=== PATIENT | female | born 1995 | race Caucasian/White ===

== ENCOUNTER 2018-10-08 16:20 | Emergency (ER) | payer SELFPAY ==
[~2018-10-08] VITALS: Ht 161.3 cm; Wt 108.9 kg
[2018-10-08 17:13] LABS: CLARITY,URINE CLEAR; COLOR,URINE YELLOW
[2018-10-08 17:14] LABS: BACTERIA,URINE NEGATIVE /HPF; BILIRUBIN,URINE NEGATIVE (NEGATIVE); GLUCOSE, URINE (UA) NEGATIVE (NEGATIVE); KETONES,URINE NEGATIVE (NEGATIVE); LEUKOCYTE ESTERASE ,URINE NEGATIVE (NEGATIVE); NITRITE,URINE NEGATIVE (NEGATIVE); PH,URINE 6.5 (5-9); PROTEIN,URINE NEGATIVE (NEGATIVE); UROBILINOGEN,URINE 0.2 MG/DL (NORMAL)
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
[2018-10-08 17:40] VITALS: BP 146/79
== END 2018-10-08 17:40 | disposition home or self-care (01) ==
LOC: ER FS 16:25
DX: T67.5XXA Heat exhaustion, unspecified, initial encounter (principal); F17.210 Nicotine dependence, cigarettes, uncomplicated
CPT/HCPCS: 81000; 84703; 99283

== ENCOUNTER 2021-01-23 13:22 | Emergency (ER) | payer SELFPAY ==
[~2021-01-23] VITALS: Ht 160 cm; Wt 112.4 kg
[2021-01-23] MEDS ORDERED: PANTOPRAZOLE 40 MG (PROTONIX) VIAL IV STA (13:47)
[2021-01-23] MEDS ORDERED: NS IV 1000 ML 1,000 ML IV STA (13:47)
[2021-01-23] MEDS ORDERED: ONDANSETRON 4 MG/2 ML (SDV) Z0FRAN IVP STA (13:47)
[2021-01-23 13:50] LABS: BACTERIA,URINE TRACE /HPF; BILIRUBIN,URINE NEGATIVE (NEGATIVE); CLARITY,URINE CLEAR; COLOR,URINE YELLOW; GLUCOSE, URINE (UA) NEGATIVE (NEGATIVE); KETONES,URINE NEGATIVE (NEGATIVE); LEUKOCYTE ESTERASE ,URINE TRACE (NEGATIVE); NITRITE,URINE NEGATIVE (NEGATIVE); PH,URINE 8.5 (5-9); PROTEIN,URINE TRACE (NEGATIVE); WBC,URINE 0-2 /HPF
--- NOTE | 2021-01-23 13:53 | ED GI ---
General Chief Complaint: Abdominal/GI Problems Stated Complaint: VOMITTING, CHILLS,SHAKING Source of Information: Patient History of Present Illness Date Seen by Provider: Jan 23, 2021 Time Seen by Provider: 13:30 Initial Comments 26-year-old female presenting with complaints of nausea and vomiting for the last several hours. She had been drinking heavily overnight and stopped around 1 AM. She states that she has not been able to keep anything down since then. She feels like she has chills and shaking. She has been vomiting to the point that her throat is sore now. She is describing acid coming up in her throat. She states even just trying to do water in her mouth to swish makes her nauseated and prompts her vomiting. She denies having reacted to drinking like this in the past. She does relate that she drank multiple drinks last night and was drinking very heavily. She is unsure of her last menstrual cycle. She states that they are irregular for her. She denies any pain or burning with urination, diarrhea, chest pain, cough, headache, body aches. She has some mild epigastric burning pain. Timing/Duration: 12 Hours Severity/Quality: Severe, Burning (epigastric and back of th roat) Activities at Onset: Other (drinking heavily) Associated Symptoms: No Back Pain, No Chest Pain, No Diaphoresis; Fever/Chills (chills without fever), Fatigue; No Headache; Heartburn, Nausea/Vomiting; No Rash, No Shortness of Air, No Swelling/Mass in Abdomen, No Syncope, No Weakness Allergies and Home Medications Allergies Coded Allergies: No Known Drug Allergies (Unverified , 01/23/21) Patient Home Medication List Home Medication List Reviewed: Yes Ondansetron (Ondansetron Odt) 4 Mg Tab.rapdis, 4 MG PO Q6H PRN for NAUSEA/VOMITING Prescribed by: WARNER BURR on 01/23/21 1526 Review of Systems Review of Systems Constitutional: see HPI; No dizziness EENTM: No Symptoms Reported Respiratory: No Symptoms Reported Cardiovascular: No Symptoms Reported Gastrointestinal: See HPI; Denies Diarrhea Genitourinary: Denies Burning, Denies Discharge, Denies Drainage, Denies Frequency, Denies Flank Pain Musculoskeletal: no symptoms reported Skin: No rash Psychiatric/Neurological: Denies Headache Past Daaqabc-Zowgfn-Yqgodp Hx Patient Social History Tobacco Use?: Yes Tobacco type used: Cigarettes Smoking Status: Current Everyday Smoker Use of E-Cig and/or Vaping dev: No Substance use?: No Alcohol Use?: No Pt feels they are or have been: No Immunizations Up To Date First/Initial COVID19 Vaccinat: Not currently vaccinated Seasonal Allergies Seasonal Allergies: No Past Medical History Surgeries: No Respiratory: No Cardiac: No Neurological: No Genitourinary: No Gastrointestinal: No Musculoskeletal: No Endocrine: No HEENT: No Cancer: No Psychosocial: No Integumentary: No Blood Disorders: No Physical Exam Vital Signs Vital Signs - First Documented 01/23/21 13:27 Temp 36.4 Pulse 76 Resp 16 B/P (MAP) 145/85 (105) Pulse Ox 98 O2 Delivery Room Air Capillary Refill : Height/Weight/BMI Height: 5'3.50" Weight: 240lbs. oz. 108.063827lh; BMI Method:Stated General Appearance: WD/WN, no apparent distress HEENT: PERRL/EOMI, pharyngeal erythema; No tonsillar exudate Neck: non-tender, full range of motion, supple, normal inspection Respiratory: chest non-tender, lungs clear, normal breath sounds, no respiratory distress, no accessory muscle use Cardiovascular: normal peripheral pulses, regular rate, rhythm Gastrointestinal: normal bowel sounds, soft, no pulsatile mass; No guarding, No rebound; tenderness (mild epigastric) Rectal: deferred Extremities: normal range of motion, non-tender, normal capillary refill Back: no CVA tenderness Pelvic: other Neurologic/Psychiatric: cut filer II-XII nml as tested, no motor/sensory deficits, alert, oriented x 3 Skin: normal color, warm/dry Images 1 - diffuse aching and soreness in abdomen but burning pain worse with palpation in epigastric area Progress/Results/Core Measures Results/Orders Lab Results Laboratory Tests Test 01/23/21 13:27 01/23/21 13:50 Range/Units Urine Color YELLOW Urine Clarity CLEAR Urine pH 8.5 5-9 Urine Specific [place] 1.010 L 1.016-1.022 Urine Protein TRACE H NEGATIVE Urine Glucose (UA) NEGATIVE NEGATIVE Urine Ketones NEGATIVE NEGATIVE Urine Nitrite NEGATIVE NEGATIVE Urine Bilirubin NEGATIVE NEGATIVE Urine Urobilinogen 0.2 < = 1.0 MG/DL Urine Leukocyte Esterase TRACE H NEGATIVE Urine RBC (Auto) NEGATIVE NEGATIVE Urine RBC 2-5 H /HPF Urine WBC 0-2 /HPF Urine Squamous Epithelial Cells 2-5 /HPF Urine Crystals NONE /LPF Urine Bacteria TRACE /HPF Urine Casts NONE /LPF Urine Mucus SMALL H /LPF Urine Culture Indicated YES White Blood Count 10.9 4.3-11.0 10^3/uL Red Blood Count 5.24 H 3.80-5.11 10^6/uL Hemoglobin 14.5 11.5-16.0 g/dL Hematocrit 44 35-52 % Mean Corpuscular Volume 84 80-99 fL Mean Corpuscular Hemoglobin 28 25-34 pg Mean Corpuscular Hemoglobin Concent 33 32-36 g/dL Red Cell Distribution Width 14.5 10.0-14.5 % Platelet Count 399 130-400 10^3/uL Mean Platelet Volume 11.5 9.0-12.2 fL Immature Granulocyte % (Auto) 0 % Neutrophils (%) (Auto) 80 H 42-75 % Lymphocytes (%) (Auto) 14 12-44 % Monocytes (%) (Auto) 4 0-12 % Eosinophils (%) (Auto) 1 0-10 % Basophils (%) (Auto) 1 0-10 % Neutrophils # (Auto) 8.7 H 1.8-7.8 X 10^3 Lymphocytes # (Auto) 1.5 1.0-4.0 X 10^3 Monocytes # (Auto) 0.5 0.0-1.0 X 10^3 Eosinophils # (Auto) 0.2 0.0-0.3 10^3/uL Basophils # (Auto) 0.1 0.0-0.1 10^3/uL Immature Granulocyte # (Auto) 0.0 0.0-0.1 10^3/uL Sodium Level 143 135-145 MMOL/L Potassium Level 4.6 3.6-5.0 MMOL/L Chloride Level 107 98-107 MMOL/L Carbon Dioxide Level 25 21-32 MMOL/L Anion Gap 11 5-14 MMOL/L Blood Urea Nitrogen 11 7-18 MG/DL Creatinine 0.71 0.60-1.30 MG/DL Estimat Glomerular Filtration Rate 99 BUN/Creatinine Ratio 15 Glucose Level 102 70-105 MG/DL Calcium Level 9.2 8.5-10.1 MG/DL Corrected Calcium 9.0 8.5-10.1 MG/DL Total Bilirubin 0.2 0.1-1.0 MG/DL Aspartate Amino Transf (AST/SGOT) 26 5-34 U/L Alanine Aminotransferase (ALT/SGPT) 26 0-55 U/L Alkaline Phosphatase 143 H 40-136 U/L Total Protein 7.8 6.4-8.2 GM/DL Albumin 4.3 3.2-4.5 GM/DL Lipase 67 8-78 U/L My Orders Orders - WARNER BURR MD Comprehensive Metabolic Panel (01/23/21 13:46) Lipase (01/23/21 13:46) Ua Culture If Indicated (01/23/21 13:46) Ed Iv/Invasive Line Start (01/23/21 13:46) Cbc With Automated Diff (01/23/21 13:46) Urine Bedside (01/23/21 13:46) Ns Iv 1000 Ml (Sodium Chloride 0.9%) (01/23/21 13:47) Ondansetron Injection (Zofran Injectio (01/23/21 13:47) Pantoprazole Injection (Protonix Injecti (01/23/21 13:47) Urine Culture (01/23/21 13:27) Vital Signs/I&O 01/23/21 01/23/21 13:27 15:36 Temp 36.4 36.4 Pulse 76 82 Resp 16 16 B/P (MAP) 145/85 (105) 130/78 Pulse Ox 98 98 O2 Delivery Room Air Room Air Progress Progress Note #1: Progress Note As patient reports that she does not feel like she could tolerate even oral dissolving Zofran without vomiting will obtain IV and check basic labs. Give a liter of normal saline for hydration, Zofran 4 mg IV for nausea, Protonix 40 mg IV for reflux and acid. Check urinalysis and bedside test as well Progress Note #2: Progress Note Reviewed labs with pt and results did not show acute significant abnormality with the blood count, chemistry or urine. Pt reports she is feeling better after fluids and treatment in the ED. Will prescribe Zofran ODT for home prn x 2 days. Advised she may also want to take some acid reducing medicine such as prilosec to help with healing the lining of her stomach from the gastritis caused by alcohol Departure Impression Primary Impression: Nausea and vomiting Qualified Codes: R11.14 - Bilious vomiting Additional Impression: Acute alcoholic gastritis without hemorrhage Disposition: HOME, SELF-CARE Condition: Stable Departure-Patient Inst. Decision time for Depature: 15:23 Referrals: NO,LOCAL PHYSICIAN (PCP) Primary Care Physician [facility] [place] Instructions: Alcohol Intoxication ED, Gastritis ED, Nausea and Vomiting, Adult ED Add. Discharge Instructions: Use the dissolving nausea tablets to help settle your stomach so he can keep drinking fluids and stay hydrated. Consider using electrolyte drinks such as Pedialyte, Gatorade, Powerade to help with hydration. When you do advanced to eating solid foods in 12 to 24 hours you should start with bland foods such as applesauce, toast, rice. This will be easier on your stomach and less likely to aggravate the irritation from the alcohol to the lining of your stomach. Consider using a acid manager studio for the next week or 2 to help with the healing of the lining of your stomach from the alcohol you drank last night If you call [phone] you could see about establishing care with a local provider at the [facility] clinic. All discharge instructions reviewed with patient and/or family. Voiced understanding. Scripts Ondansetron (Ondansetron Odt) 4 Mg Tab.rapdis 4 MG PO Q6H PRN for NAUSEA/VOMITING for 2 Days, #8 TAB 0 Refills Prov: WARNER BURR MD 01/23/21 WARNER BURR MD Jan 23, 2021 13:53
[2021-01-23 13:58] LABS: BASOPHILS # (AUTO) 0.1 10^3/uL (0.0-0.1); BASOPHILS % (AUTO) 1 % (0-10); EOSINOPHILS # (AUTO) 0.2 10^3/uL (0.0-0.3); EOSINOPHILS % (AUTO) 1 % (0-10); HEMATOCRIT 44 % (35-52); HEMOGLOBIN 14.5 g/dL (11.5-16.0); LYMPHOCYTES # (AUTO) 1.5 X 10^3 (1.0-4.0); LYMPHOCYTES % (AUTO) 14 % (12-44); MEAN CORPUSCULAR HEMOGLOBIN 28 pg (25-34); MEAN CORPUSCULAR HGB CONC 33 g/dL (32-36); MEAN CORPUSCULAR VOLUME 84 fL (80-99); MEAN PLATELET VOLUME 11.5 fL (9.0-12.2); MONOCYTES # (AUTO) 0.5 X 10^3 (0.0-1.0); MONOCYTES % (AUTO) 4 % (0-12); NEUTROPHILS # (AUTO) 8.7 X 10^3 (1.8-7.8); NEUTROPHILS % (AUTO) 80 % (42-75); PLATELET COUNT 399 10^3/uL (130-400); WHITE BLOOD COUNT 10.9 10^3/uL (4.3-11.0)
[2021-01-23 14:24] LABS: ALBUMIN 4.3 GM/DL (3.2-4.5); BILIRUBIN,TOTAL 0.2 MG/DL (0.1-1.0); CALCIUM 9.2 MG/DL (8.5-10.1); CREATININE SERUM 0.71 MG/DL (0.60-1.30); POTASSIUM 4.6 MMOL/L (3.6-5.0); TOTAL PROTEIN 7.8 GM/DL (6.4-8.2)
[2021-01-23] MEDS ORDERED: ONDA4TAB11 PO (15:26)
[2021-01-23 15:36] VITALS: BP 130/78
== END 2021-01-23 15:32 | disposition home or self-care (01) ==
LOC: EDUNIT# 13:22 → ER FS 13:24
DX: K29.20 Alcoholic gastritis without bleeding (principal); F17.210 Nicotine dependence, cigarettes, uncomplicated
CPT/HCPCS: 36415; 80053; 81000; 83690; 84703; 85025; 87088

== ENCOUNTER 2022-02-28 22:04 | Emergency (ER) | payer BC, OTHER ==
[~2022-02-28] VITALS: Ht 160 cm; Wt 113.5 kg
[~2022-02-28 22:04] MED LIST: ONDA4TAB11 PO
[2022-02-28 22:06] VITALS: BP 150/83
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
== END 2022-02-28 22:17 | disposition home or self-care (01) ==
LOC: EDUNIT# 22:04 → ER FS 22:05
DX: T23.132A Burn of first degree of multiple left fingers (nail), not including thumb, initial encounter (principal); T31.0 Burns involving less than 10% of body surface; Z28.310 Unvaccinated for COVID-19; X13.1XXA Other contact with steam and other hot vapors, initial encounter; Y93.G3 Activity, cooking and baking
CPT/HCPCS: 99281

== ENCOUNTER 2022-07-12 02:55 | Emergency (ER) | payer BC ==
[~2022-07-12] VITALS: Ht 160 cm; Wt 120.7 kg
--- NOTE | 2022-07-12 03:14 | ED Abdominal Pain ---
General Stated Complaint: SHARP ADB PAIN| LEFT SIDE History of Present Illness Date Seen by Provider: July 12, 2022 Time Seen by Provider: 03:08 Initial Comments 27-year-old female with PMH of an ectopic in 2016, is here with complaints of mild pain in the left lower quadrant which is radiating to the right side which began last night. Patient states that the pain is intense and comes and goes. Denies fever and chills, nausea or vomiting, diarrhea, constipation, dysuria or hematuria, chest pain. Allergies and Home Medications Allergies Coded Allergies: No Known Drug Allergies (Unverified , 01/23/21) Patient Home Medication List Home Medication List Reviewed: Yes Ondansetron (Ondansetron Odt) 4 Mg Tab.rapdis, 4 MG PO Q6H PRN for NAUSEA/VOMITING Prescribed by: WARNER BURR on 01/23/21 1526 Review of Systems Review of Systems Constitutional: no symptoms reported EENTM: No Symptoms Reported Respiratory: No Symptoms Reported Cardiovascular: No Symptoms Reported Gastrointestinal: Abdominal Pain Genitourinary: No Symptoms Reported Musculoskeletal: no symptoms reported Skin: no symptoms reported Psychiatric/Neurological: No Symptoms Reported Endocrine: No Symptoms Reported Hematologic/Lymphatic: No Symptoms Reported Past Npmkurc-Ngczaq-Etcfla Hx Immunizations Up To Date First/Initial COVID19 Vaccinat: Not currently vaccinated Seasonal Allergies Seasonal Allergies: No Past Medical History Surgeries: No Respiratory: No Cardiac: No Neurological: No Genitourinary: No Gastrointestinal: No Musculoskeletal: No Endocrine: No HEENT: No Cancer: No Psychosocial: No Integumentary: No Blood Disorders: No Family Medical History No Pertinent Family Hx Physical Exam Vital Signs Vital Signs - First Documented 07/12/22 03:00 Temp 36.6 Pulse 93 Resp 20 B/P (MAP) 144/89 (107) Pulse Ox 10 O2 Delivery Room Air Capillary Refill : Height/Weight/BMI Height: 5'3.50" Weight: 240lbs. oz. [id number]; 44.00 BMI Method:Stated General Appearance: WD/WN, no apparent distress, obese HEENT: PERRL/EOMI Neck: full range of motion Respiratory: lungs clear, normal breath sounds Cardiovascular: regular rate, rhythm, no edema Gastrointestinal: normal bowel sounds, soft, no organomegaly, tenderness (Palpation demonstrates tenderness in the LLQ, RLQ, RUQ, epigastric regions.) Extremities: normal range of motion Back: no CVA tenderness Pelvic: normal external exam Neurologic/Psychiatric: alert, normal mood/affect, oriented x 3 Skin: normal color Focused Exam Lactate Level 07/12/22 04:30: Lactic Acid Level 0.75 Lactic Acid Level Laboratory Tests Test 07/12/22 04:30 Lactic Acid Level 0.75 MMOL/L (0.50-2.00) Progress/Results/Core Measures Results/Orders Lab Results Laboratory Tests Test 07/12/22 03:06 07/12/22 03:10 07/12/22 04:30 Range/Units Urine Color YELLOW Urine Clarity SL CLOUDY Urine pH 6.0 5-9 Urine Specific [place] <=1.005 1.016-1.022 Urine Protein NEGATIVE NEGATIVE Urine Glucose (UA) NEGATIVE NEGATIVE Urine Ketones NEGATIVE NEGATIVE Urine Nitrite NEGATIVE NEGATIVE Urine Bilirubin NEGATIVE NEGATIVE Urine Urobilinogen 0.2 < = 1.0 MG/DL Urine Leukocyte Esterase 1+ H NEGATIVE Urine RBC (Auto) NEGATIVE NEGATIVE Urine RBC RARE /HPF Urine WBC 0-2 /HPF Urine Squamous Epithelial Cells 2-5 /HPF Urine Crystals NONE /LPF Urine Bacteria FEW H /HPF Urine Casts NONE /LPF Urine Mucus SMALL H /LPF Urine Other CLUE CELLS PRESENT /HPF Urine Culture Indicated NO Urine Opiates Screen NEGATIVE NEGATIVE Urine Oxycodone Screen NEGATIVE NEGATIVE Urine Methadone Screen NEGATIVE NEGATIVE Urine Propoxyphene Screen NEGATIVE NEGATIVE Urine Barbiturates Screen NEGATIVE NEGATIVE Ur Tricyclic Antidepressants Screen NEGATIVE NEGATIVE Urine Phencyclidine Screen NEGATIVE NEGATIVE Urine Amphetamines Screen NEGATIVE NEGATIVE Urine Methamphetamines Screen NEGATIVE NEGATIVE Urine Benzodiazepines Screen NEGATIVE NEGATIVE Urine Cocaine Screen NEGATIVE NEGATIVE Urine Cannabinoids Screen NEGATIVE NEGATIVE White Blood Count 12.7 H 4.3-11.0 10^3/uL Red Blood Count 5.10 3.80-5.11 10^6/uL Hemoglobin 14.2 11.5-16.0 g/dL Hematocrit 44 35-52 % Mean Corpuscular Volume 85 80-99 fL Mean Corpuscular Hemoglobin 28 25-34 pg Mean Corpuscular Hemoglobin Concent 33 32-36 g/dL Red Cell Distribution Width 13.7 10.0-14.5 % Platelet Count 349 130-400 10^3/uL Mean Platelet Volume 11.5 9.0-12.2 fL Immature Granulocyte % (Auto) 0 % Neutrophils (%) (Auto) 63 42-75 % Lymphocytes (%) (Auto) 27 12-44 % Monocytes (%) (Auto) 5 0-12 % Eosinophils (%) (Auto) 4 0-10 % Basophils (%) (Auto) 1 0-10 % Neutrophils # (Auto) 8.0 H 1.8-7.8 10^3/uL Lymphocytes # (Auto) 3.4 1.0-4.0 10^3/uL Monocytes # (Auto) 0.7 0.0-1.0 10^3/uL Eosinophils # (Auto) 0.5 H 0.0-0.3 10^3/uL Basophils # (Auto) 0.1 0.0-0.1 10^3/uL Immature Granulocyte # (Auto) 0.1 0.0-0.1 10^3/uL Sodium Level 139 135-145 MMOL/L Potassium Level 4.0 3.6-5.0 MMOL/L Chloride Level 104 98-107 MMOL/L Carbon Dioxide Level 23 21-32 MMOL/L Anion Gap 12 5-14 MMOL/L Blood Urea Nitrogen 17 7-18 MG/DL Creatinine 0.84 0.60-1.30 MG/DL Estimat Glomerular Filtration Rate 97 BUN/Creatinine Ratio 20 Glucose Level 98 70-105 MG/DL Calcium Level 9.3 8.5-10.1 MG/DL Corrected Calcium 9.3 8.5-10.1 MG/DL Total Bilirubin 0.2 0.1-1.0 MG/DL Aspartate Amino Transf (AST/SGOT) 17 5-34 U/L Alanine Aminotransferase (ALT/SGPT) 15 0-55 U/L Alkaline Phosphatase 150 H 40-136 U/L Total Protein 7.3 6.4-8.2 GM/DL Albumin 4.0 3.2-4.5 GM/DL Lipase 51 8-78 U/L Serum Alcohol < 10 <10 MG/DL Lactic Acid Level 0.75 0.50-2.00 MMOL/L My Orders Orders - JOSE ÁLVAREZ MD Alcohol (07/12/22 03:14) Cbc With Automated Diff (07/12/22 03:14) Comprehensive Metabolic Panel (07/12/22 03:14) Drug Screen Stat (Urine) (07/12/22 03:14) Lactic Acid Analyzer (07/12/22 03:14) Lipase (07/12/22 03:14) Ua Culture If Indicated (07/12/22 03:14) Ct Abdomen/Pelvis W (07/12/22 03:22) Ketorolac Injection (Toradol Injection) (07/12/22 03:30) Ed Iv/Invasive Line Start (07/12/22 03:23) Ns Iv 1000 Ml (Sodium Chloride 0.9%) (07/12/22 03:23) Iohexol Injection (Omnipaque 350 Mg/Ml 1 (07/12/22 04:15) Received Contrast (Hold Metformin- Contr (07/12/22 04:15) Sodium Chloride Flush (Catheter Flush Sy (07/12/22 04:15) Ns (Ivpb) (Sodium Chloride 0.9% Ivpb Bag (07/12/22 04:15) Medications Given in ED Current Medications Medications Dose Ordered Sig/Bere Route Start Time Stop Time Status Last Admin Dose Admin Iohexol 100 ml ONCE ONCE IV 07/12/22 04:15 07/12/22 04:16 DC 07/12/22 04:34 80 ML Ketorolac Tromethamine 15 mg ONCE ONCE IVP 07/12/22 03:30 07/12/22 03:31 DC 07/12/22 03:34 15 MG Sodium Chloride 10 ml NEEDED PRN IV 07/12/22 04:15 07/12/22 04:34 10 ML Sodium Chloride 100 ml ONCE ONCE IV 07/12/22 04:15 07/12/22 04:16 DC 07/12/22 04:34 100 ML Vital Signs/I&O 07/12/22 07/12/22 03:00 03:34 Temp 36.6 36.6 Pulse 93 Resp 20 B/P (MAP) 144/89 (107) Pulse Ox 10 O2 Delivery Room Air Progress Progress Note : Progress Note 1. ABDOMINAL PAIN/ UTI: - CT ABD & PELVIS: normal - CBC/ CMP: no acute findings - Lipase negative - UDS: negative - UA is positive for LE and bacteria - NS IVF - Toradol 15mg iv STAT - Prescription given for Nitrofurantoin 100mg bid for 7 days -Adequate hydration advised -Follow-up with PCP as needed -The patient was seen in the ED, and treated appropriately to presentation at a specific point in time. Patient is informed that there is a possibility that disease and illness can evolve and change in acuity rapidly or slowly after patient is discharged from the ER. Precautionary advice given to the patient for immediate return to ER if symptoms worsen or do not resolve, and to seek emergency care sooner rather than later. Pt also advised on the importance of PCP follow up and compliance with management and follow up plan with PCP and/or specialist, as this is part of the management plan. Pt verbally expressed understanding. Diagnostic Imaging Diagonstic Imaging: CT Plain Films/CT/US/NM/MRI: abdomen, pelvis Comments [facility]. [place], [place] NAME: ANEESH CHRISTINE [facility] REC#: [id number] PT STATUS: REG ER : 1995 PHYSICIAN: JOSE ÁLVAREZ MD ADMIT DATE: 07/12/22/ER FS Draft Date of Exam:07/12/22 CT ABDOMEN/PELVIS W EXAMINATION: CT abdomen and pelvis with intravenous contrast. TECHNIQUE: Multiple contiguous axial images were obtained through the abdomen and pelvis after the uneventful administration of intravenous contrast. All CT scans use one or more of the following dose optimizing techniques: automated exposure control, MA and/or KvP adjustment based on patient size and exam type or iterative reconstruction. HISTORY: generalized abdominal pain COMPARISON: None available. FINDINGS: Lung bases: Bibasilar dependent atelectasis. Solid organs: The liver is normal without focal lesion. The gallbladder is normal. There is no biliary ductal dilation. Pancreas is normal. Spleen is normal. Adrenal glands are normal. The kidneys are normal without hydronephrosis. Bowel: The stomach and small bowel are normal without obstruction. The colon is normal. The appendix is normal. Peritoneum: There is no intraperitoneal free fluid or free air. No suspicious lymphadenopathy. Vasculature: Normal without aneurysm. Musculoskeletal: No suspicious osseous lesion or compression fracture. Pelvis: The uterus and adnexa are normal. The urinary bladder is normal. IMPRESSION: 1. No acute abnormality in the abdomen or pelvis. Dictated on workstation # [id number] Dict: 07/12/22622 Trans: 07/12/22 [id number] Interpreted by: BLANCA PYLE DO Electronically signed by: Departure Impression Primary Impression: UTI (urinary tract infection) Disposition: HOME, SELF-CARE Condition: Stable Departure-Patient Inst. Referrals: NO,LOCAL PHYSICIAN (PCP/Family) Primary Care Physician Patient Instructions: Urinary Tract Infections in Adults, Urinary Tract Infection, Adult ED Add. Discharge Instructions: - Prescription given for Nitrofurantoin 100mg bid for 7 days -Adequate hydration advised -Follow-up with PCP as needed Scripts Nitrofurantoin Macrocrystal (Nitrofurantoin) 100 Mg Capsule 100 MG PO BID for 7 Days, #14 CAP Prov: JOSE ÁLVAREZ MD 07/12/22 Work/School Note: Work Release Form Date Seen in the Emergency Department: July 12, 2022 Return to Work: July 13, 2022 Restrictions: No Restrictions JOSE ÁLVAREZ MD July 12, 2022 03:14
[2022-07-12] MEDS ORDERED: NS IV 1000 ML 1,000 ML IV STA (03:23)
[2022-07-12 03:25] LABS: BASOPHILS # (AUTO) 0.1 10^3/uL (0.0-0.1); BASOPHILS % (AUTO) 1 % (0-10); EOSINOPHILS # (AUTO) 0.5 10^3/uL (0.0-0.3); EOSINOPHILS % (AUTO) 4 % (0-10); HEMATOCRIT 44 % (35-52); HEMOGLOBIN 14.2 g/dL (11.5-16.0); LYMPHOCYTES # (AUTO) 3.4 10^3/uL (1.0-4.0); LYMPHOCYTES % (AUTO) 27 % (12-44); MEAN CORPUSCULAR HEMOGLOBIN 28 pg (25-34); MEAN CORPUSCULAR HGB CONC 33 g/dL (32-36); MEAN CORPUSCULAR VOLUME 85 fL (80-99); MEAN PLATELET VOLUME 11.5 fL (9.0-12.2); MONOCYTES # (AUTO) 0.7 10^3/uL (0.0-1.0); MONOCYTES % (AUTO) 5 % (0-12); NEUTROPHILS % (AUTO) 63 % (42-75); PLATELET COUNT 349 10^3/uL (130-400); WHITE BLOOD COUNT 12.7 10^3/uL (4.3-11.0)
[2022-07-12] MEDS ORDERED: KETOROLAC 15 MG/ML VIAL IVP ONE (03:30)
[2022-07-12 03:31] LABS: BILIRUBIN,URINE NEGATIVE (NEGATIVE); CLARITY,URINE SL CLOUDY; COLOR,URINE YELLOW; GLUCOSE, URINE (UA) NEGATIVE (NEGATIVE); KETONES,URINE NEGATIVE (NEGATIVE); LEUKOCYTE ESTERASE ,URINE 1+ (NEGATIVE); NITRITE,URINE NEGATIVE (NEGATIVE); PROTEIN,URINE NEGATIVE (NEGATIVE)
[2022-07-12 03:43] LABS: BACTERIA,URINE FEW /HPF; RBC,URINE RARE /HPF; WBC,URINE 0-2 /HPF
[2022-07-12 03:44] LABS: URINE OTHER CLUE CELLS PRESENT /HPF
[2022-07-12 03:45] LABS: AMPHETAMINE SCREEN, URINE NEGATIVE (NEGATIVE); BARBITURATE SCREEN URINE NEGATIVE (NEGATIVE); BENZODIAZEPINES SCREEN URINE NEGATIVE (NEGATIVE); CANNABINOID SCREEN, URINE NEGATIVE (NEGATIVE); COCAINE SCREEN URINE NEGATIVE (NEGATIVE); METHADONE STAT NEGATIVE (NEGATIVE); OPIATE SCREEN URINE NEGATIVE (NEGATIVE); OXYCODONE STAT NEGATIVE (NEGATIVE); PROPOXYPHENE STAT NEGATIVE (NEGATIVE); TRICYCLIC ANTIDEPRESSANTS SCRE NEGATIVE (NEGATIVE)
[2022-07-12 03:51] LABS: BUN/CREATININE RATIO 20; CALCIUM 9.3 MG/DL (8.5-10.1); CARBON DIOXIDE 23 MMOL/L (21-32); CHLORIDE 104 MMOL/L (98-107); CREATININE SERUM 0.84 MG/DL (0.60-1.30); GFR ESTIMATED 97; GLUCOSE 98 MG/DL (70-105); SODIUM 139 MMOL/L (135-145)
[2022-07-12 03:52] LABS: ALANINE AMINOTRANSFERASE 15 U/L (0-55); ALKALINE PHOSPHATASE 150 U/L (40-136); BILIRUBIN,TOTAL 0.2 MG/DL (0.1-1.0); LIPASE 51 U/L (8-78); TOTAL PROTEIN 7.3 GM/DL (6.4-8.2)
[2022-07-12] MEDS ORDERED: HOLD METFORMIN - RECEIVED CONTRAST 20 ML VIAL IV SCH (04:15)
[2022-07-12] MEDS ORDERED: CATHETER FLUSH 10 ML SYR IV PRN (04:15)
[2022-07-12] MEDS ORDERED: NS 100 ML (IVPB) BAG IV ONE (04:15)
[2022-07-12] MEDS ORDERED: IOHEXOL 350 MG/ML 100 ML (OMNIPAQUE 350) VIAL IV ONE (04:15)
--- NOTE | 2022-07-12 06:31 | Diagnostic Imaging Report ---
EXAMINATION: CT abdomen and pelvis with intravenous contrast. TECHNIQUE: Multiple contiguous axial images were obtained through the abdomen and pelvis after the uneventful administration of intravenous contrast. All CT scans use one or more of the following dose optimizing techniques: automated exposure control, MA and/or KvP adjustment based on patient size and exam type or iterative reconstruction. HISTORY: generalized abdominal pain COMPARISON: None available. FINDINGS: Lung bases: Bibasilar dependent atelectasis. Solid organs: The liver is normal without focal lesion. The gallbladder is normal. There is no biliary ductal dilation. Pancreas is normal. Spleen is normal. Adrenal glands are normal. The kidneys are normal without hydronephrosis. Bowel: The stomach and small bowel are normal without obstruction. The colon is normal. The appendix is normal. Peritoneum: There is no intraperitoneal free fluid or free air. No suspicious lymphadenopathy. Vasculature: Normal without aneurysm. Musculoskeletal: No suspicious osseous lesion or compression fracture. Pelvis: The uterus and adnexa are normal. The urinary bladder is normal. IMPRESSION: 1. No acute abnormality in the abdomen or pelvis. Dictated by: Dictated on workstation # [id number]
[2022-07-12] MEDS ORDERED: NITR100C PO (06:43)
[2022-07-12 06:50] VITALS: BP 125/45
== END 2022-07-12 06:50 | disposition home or self-care (01) ==
LOC: EDUNIT# 02:55 → ER FS 02:58
DX: N39.0 Urinary tract infection, site not specified (principal); E66.9 Obesity, unspecified; Z68.41 Body mass index [BMI] 40.0-44.9, adult; Z28.310 Unvaccinated for COVID-19
CPT/HCPCS: 36415; 74177; 80053; 80306; 81000; 83605; 83690; 84703; 85025; G0480; 80320